=== PATIENT | male | born 1965 | race Caucasian/White ===

== ENCOUNTER 2016-03-30 23:10 | Emergency (ER) | payer MEDICARE ==
[~2016-03-30] VITALS: Ht 182.9 cm; Wt 78.2 kg
[~2016-03-30 23:10] MED LIST: AMOX500T2 PO; DOXY100T PO; FENT50DI TD; FENT75DI TD; LACT PO; OXYC1SOL5 PO; PERC10TA27 PO; SULF-154 PO
[2016-03-30 23:16] VITALS: BP 130/99; PULSE 138; RESP 18; TEMP 98.7; O2SAT 99
[2016-03-31] MEDS ORDERED: KETOROLAC TROMETHAMINE 30 MG/ML (IVP) VIAL IV PUSH ONE (00:30)
[2016-03-31 00:55] LABS: AUTOMATED NEUTROPHIL # 5.4 TH/MM3 (1.8-7.7); BASOPHIL % 0.6 % (0.0-2.0); EOSINOPHIL # 0.1 TH/MM3 (0-0.4); HEMATOCRIT 52.8 % (39.0-51.0); HEMO FLAGS DIFF FINAL; LYMPH % 21.1 % (9.0-44.0); LYMPHOCYTE # 1.6 TH/MM3 (1.0-4.8); MEAN CELL VOLUME 95.3 FL (80.0-100.0); MEAN CORPUSCULAR HEMOGLOBIN 30.9 PG (27.0-34.0); MEAN CORPUSCULAR HGB CONC 32.5 % (32.0-36.0); MONO % 8.7 % (0.0-8.0); NEUT % 68.6 % (16.0-70.0); PLATELET COUNT 282 TH/MM3 (150-450); RED BLOOD COUNT 5.54 MIL/MM3 (4.50-5.90); RED CELL DISTRIBUTION WIDTH 13.5 % (11.6-17.2); WHITE BLOOD COUNT 7.8 TH/MM3 (4.0-11.0)
--- NOTE | 2016-03-31 00:55 | RADHPO ---
EXAM DATE/TIME: 03/31/2016 00:34 [place] COMPARISON: CT ABDOMEN & PELVIS W CONTRAST, July 25, 2014, 2:23. INDICATIONS : Non-traumatic right hip pain MEDICAL HISTORY : Bilateral Avacular necrosis SURGICAL HISTORY : Bilateral hip arthroplasty ENCOUNTER: Initial ACUITY: 4 - 6 days PAIN SCORE: 8/10 LOCATION: Right hip FINDINGS: Bilateral total hip arthroplasties are noted. On the right, there is malleable plate apparatus on the acetabulum and there are multiple cerclage wires encircling the femoral stem component. The hardware is intact throughout. Alignment is anatomic. No acute bony findings are seen. There is no evidence o f displaced pelvic fracture. Lumbar spinal hardware fusion is also noted. CONCLUSION: No acute bony findings Edilson Ramos MD on March 31, 2016 at 0:51 Board Certified Radiologist. This report was verified electronically.
[2016-03-31 01:01] LABS: POTASSIUM 3.4 MEQ/L (3.5-5.1)
[2016-03-31 01:04] LABS: BICARBONATE 22.1 MEQ/L (21.0-32.0)
--- NOTE | 2016-03-31 01:12 | PD ---
HPI Chief Complaint: Pain: Acute or Chronic Time Seen by Provider: 01:12 Travel History International Travel<30 days: No Contact w/Intl Traveler<30days: No Traveled to known affect area: No History of Present Illness HPI 50-year-old male presents to the emergency department by private transportation for complaint of reported severe right hip pain. Patient has had surgery to the right hip twice before as well as left hip surgery once before and low back surgery in the past. Patient is on Medicare of a pain management physician and orthopedist Dr. Castano. Patient had surgery on his hips performed in [place] and [place]. Patient was told by his local orthopedist Dr. Castano there is no surgical options that he could offer the patient. Patient was encouraged by his orthopedist here locally to follow-up with pain management. Patient states that he has been followed by pain management who has prescribed him Percocet and fentanyl patches but due to the cost of these medications he has not been able to refill them even though he is caring the prescriptions from his provider with him. Patient states he took his last Percocet on Thursday and his fentanyl patch reportedly fell off on . The patient rates his pain 10 over 10 in intensity. Patient has not had any fever or chills and has not noticed any redness or swelling or induration or increased warmth in the right hip location. Patient uses a cane to assist with ambulation which is his typical mode of assisted ambulation. Patient denies any distal lower leg pain or swelling. PFSH Past Medical History Narrative Medical Arthritis asthma cardiac catheterization dyslipidemia hypertension diabetes tobaccoism bilateral hip surgery lumbar surgery cervical spine surgery nursing notes reviewed Arthritis: Yes Asthma: Yes Anxiety: Yes Depression: Yes Heart Rhythm Problems: No Cancer: No Cardiac Catheterization: Yes (2011) Cardiovascular Problems: Yes (Cardiac Cath) High Cholesterol: Yes Chest Pain: No Congestive Heart Failure: No Cerebrovascular Accident: No Diabetes: Yes (DIET CONTROLLED) Patient Takes Glucophage: No Diminished Hearing: No Endocrine: Yes Gastrointestinal Disorders: No Genitourinary: No Headaches: No Hepatitis: No Hiatal Hernia: Yes (REPAIR 2011) Herniated Disk: Yes Hypertension: Yes Immune Disorder: No Implanted Vascular Access Dvce: Yes Kidney Stones: No Musculoskeletal: Yes (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) Neurologic: No Psychiatric: Yes (Depression , Anxiety) Reproductive: No Respiratory: No Immunizations Current: Yes Migraines: No Renal Failure: No Seizures: No Thyroid Disease: No Tetanus Vaccination: < 5 Years Influenza Vaccination: Yes Past Surgical History Body Medical Devices: BILAT HIPS, MARISA IN LOW BACK, MARISA/FUSION IN NECK Cardiac Surgery: Yes (CARDIAC CATH 2009) Joint Replacement: Yes (BILATERAL HIPS) Neurologic Surgery: Yes (L5-S1 FUSION 2004, 2 LEVEL CERVICAL FUSION) Oral Surgery: Yes (TONSILLECTOMY) Pacemaker: No Tonsillectomy: Yes Other Surgery: Yes (FUSION CERVICAL 2006,2013) Social History Alcohol Use: Yes (VERY RARE) Tobacco Use: Yes (03/17 PPD) Substance Use: No (DENIES) Allergies-Medications (Allergen,Severity, Reaction): Coded Allergies: Morphine (Verified Allergy, Intermediate, Itching, 03/30/16) Reported Meds & Prescriptions Reported Meds & Active Scripts Active Lactinex (Lactobacillus Acidophilus) 1 Tab Tab 1 Tab PO TID 30 Days Augmentin 500MG/125MG (Amoxicillin/Clavulanate Potassium) 500 Mg Tab 500 Mg PO TID 14 Days Oxycodone/Acetaminophen 7.5 mg/325 mg 7.5 mg/325 mg Tab 2 Tab PO Q4H PRN Oxycodone/Acetaminophen 10 mg/325 mg 10 mg/325 mg Tab 1 Tab PO Q4H PRN Duragesic 50 Mcg/Hr (Fentanyl) 50 Mcg/Hr Patch 1 Patch TD Q3D Septra Ds (Trimethoprim/Sulfamethoxazole) Tab 1 Tab PO BID Vibramycin 100 mg (Doxycycline Hyclate) 100 Mg Cap 100 Mg PO BID Reported Fentanyl 75 Mcg/Hr patch (Fentanyl) 75 Mcg/Hr Dis 75 Mcg TD DIRECTED Percocet 10-325 mg (Oxycodone-Acetaminophen 10-325 mg) Oxycodone 10/325 Acetaminophen Tab 1 Tab PO Q4H Review of Systems Except as stated in HPI: all other systems reviewed are Neg Physical Exam Narrative GENERAL: Well-developed well-nourished male in no acute distress no respiratory distress is noted to be tachycardic by triage vital signs SKIN: Warm and dry. HEAD: Normocephalic. EYES: No scleral icterus. No injection or drainage. NECK: Supple, trachea midline. No JVD or lymphadenopathy. CARDIOVASCULAR: Increased Regular rate and rhythm without murmurs, gallops, or rubs. RESPIRATORY: Breath sounds equal bilaterally. No accessory muscle use. GASTROINTESTINAL: Abdomen soft, non-tender, nondistended. MUSCULOSKELETAL: No cyanosis, or edema. Attention right hip well healed surgical scar without redness induration tenderness or increased warmth. Patient is able to perform hip flexion to at least 45 or greater with out evidence of marked pain with range of motion of hip on flexion and extension distally there is no deformity no ballotable knee effusion lower leg pain or tenderness redness increased warmth ankle deformity or pallor dorsalis pedis pulses 2+ to palpation of the right foot with brisk capillary refill less than 2 seconds. BACK: Nontender without obvious deformity. No CVA tenderness. Data Data Last Documented VS Vital Signs Date Time Temp Pulse Resp B/P Pulse Ox O2 Delivery O2 Flow Rate FiO2 03/30/16 23:31 18 03/30/16 23:16 98.7 138 130/99 99 Orders ^ Saline Lock (03/31/16 00:21) Complete Blood Count With Diff (03/31/16 00:21) Basic Metabolic Panel (Bmp) (03/31/16 00:21) Hip, Uni(Ap&Lat) Wo Ap Pelvis (03/31/16 ) Ketorolac Inj (Toradol Inj) (03/31/16 00:30) Hydromorphone Pf Inj (Dilaudid Pf Inj) (03/31/16 01:15) Ondansetron Inj (Zofran Inj) (03/31/16 01:15) Labs Laboratory Tests Test 03/31/16 00:50 White Blood Count 7.8 TH/MM3 Red Blood Count 5.54 MIL/MM3 Hemoglobin 17.1 GM/DL Hematocrit 52.8 % Mean Corpuscular Volume 95.3 FL Mean Corpuscular Hemoglobin 30.9 PG Mean Corpuscular Hemoglobin 32.5 % Concent Red Cell Distribution Width 13.5 % Platelet Count 282 TH/MM3 Mean Platelet Volume 8.1 FL Neutrophils (%) (Auto) 68.6 % Lymphocytes (%) (Auto) 21.1 % Monocytes (%) (Auto) 8.7 % Eosinophils (%) (Auto) 1.0 % Basophils (%) (Auto) 0.6 % Neutrophils # (Auto) 5.4 TH/MM3 Lymphocytes # (Auto) 1.6 TH/MM3 Monocytes # (Auto) 0.7 TH/MM3 Eosinophils # (Auto) 0.1 TH/MM3 Basophils # (Auto) 0.0 TH/MM3 CBC Comment DIFF FINAL Differential Comment Sodium Level 138 MEQ/L Potassium Level 3.4 MEQ/L Chloride Level 104 MEQ/L Carbon Dioxide Level 22.1 MEQ/L Anion Gap 12 MEQ/L Blood Urea Nitrogen 10 MG/DL Creatinine 0.73 MG/DL Estimat Glomerular Filtration 113 ML/MIN Rate Random Glucose 176 MG/DL Calcium Level 9.4 MG/DL [facility] Medical Decision Making Medical Screen Exam Complete: Yes Emergency Medical Condition: Yes Medical Record Reviewed: Yes Differential Diagnosis Hip pain, chronic pain syndrome, opiate withdrawal, abscess, septic arthritis, uncontrolled diabetes Narrative Course IV access obtained patient administered Toradol 30 mg IV; CBC with automated differential values grossly within normal range except for elevated hemoglobin of 17.1; basic metabolic panel values within normal range except for mild hyperglycemia glucose 176 and potassium mild hypokalemia 3.4 At 1:10 AM x-ray of the right hip reveals no acute bony abnormality; patient requesting stronger pain medication as Toradol Zofran providing adequate relief. One x dose of Dilaudid administered Diagnosis Primary Impression: Chronic right hip pain Referrals: Pain Management 1 day Patient Instructions: Narcotic given in the ED, General Instructions Additional Instructions: Follow-up with your pain management physician Follow-up with your orthopedist Return to the emergency department for any concerns or change in condition Take ibuprofen/Advil/Motrin may take 600-800 mg as often as every 8 hours for pain associated with inflammation; avoid high-dose ibuprofen for greater than 2- 3 days Add potassium containing foods and beverages to dietary intake Med/Other Pt SpecificInfo: No Change to Meds Disposition: 01 DISCHARGE HOME Condition: Stable Louise Mckinney MD Mar 31, 2016 01:12
[2016-03-31] MEDS ORDERED: HYDROmorphone HCL PF 1 MG/ML VIAL IV PUSH ONE (01:15)
[2016-03-31] MEDS ORDERED: ONDANSETRON HCL 4 MG/2 ML VIAL IV PUSH ONE (01:15)
[2016-03-31 01:30] VITALS: BP 119/84; PULSE 113; RESP 16; O2SAT 96
== END 2016-03-31 02:32 | disposition home or self-care (01) ==
LOC: PHED 23:10
DX: M25.551 Pain in right hip (principal); G89.29 Other chronic pain; I10 Essential (primary) hypertension; E11.9 Type 2 diabetes mellitus without complications; E78.5 Hyperlipidemia, unspecified; E78.00 Pure hypercholesterolemia, unspecified; F17.200 Nicotine dependence, unspecified, uncomplicated; Z98.890 Other specified postprocedural states; Z87.39 Personal history of other diseases of the musculoskeletal system and connective tissue; Z87.09 Personal history of other diseases of the respiratory system; Z86.59 Personal history of other mental and behavioral disorders; Z86.79 Personal history of other diseases of the circulatory system
CPT/HCPCS: 73502; 80048; 85025; 96374; 96375; 99283; J1170; J1885; J2405

== ENCOUNTER 2016-10-14 19:59 | Inpatient (IN) | payer MEDICARE ==
[~2016-10-14] VITALS: Ht 182.9 cm; Wt 85.5 kg
[2016-10-14 20:01] VITALS: BP 139/81; PULSE 124; RESP 16; TEMP 98.9; O2SAT 98
[2016-10-14] MEDS ORDERED: ONDANSETRON HCL 4 MG/2 ML VIAL IV PUSH ONE (22:30)
[2016-10-14] MEDS ORDERED: HYDROmorphone HCL PF 1 MG/ML VIAL IV PUSH ONE (22:30)
--- NOTE | 2016-10-14 22:47 | PD ---
HPI Chief Complaint: Hip Injury Time Seen by Provider: 22:40 Travel History International Travel<30 days: No Contact w/Intl Traveler<30days: No Traveled to known affect area: No History of Present Illness HPI 51-year-old male presents emergency department requesting psychological evaluation for suicidal ideation. The patient states that he is tired of being in pain. The patient states that he is under pain management due to chronic hip, neck and back pain. He takes 75 g of fentanyl daily along with 4 Percocet 10 mg. He states that the pain has been getting worse more so in his right hip. He has doubled up on his Percocet and now has run out over the past week. He was told by Dr. Castano his orthopedist that he could not have a revision of his right hip because it was too risky. He has a loss of bone in a loose hip prosthesis and he is advised to follow-up with the [facility] for possible revision. The patient has not been able sleep. He is accompanied by his who states that she is concerned that he may hurt himself. He is here voluntarily and asking for help. He had been under the care of Dr. Sesay in the past. He was seen approximately 2 years ago and was on an antidepressant. He has been off his medications for some time now. He denies any active plan on self-harm but is concerned that he may hurt himself. He states that if he was going to hurt himself he may hang himself. He denies any toxic ingestions. He denies any recent illness or injury. Symptoms are severe. No alleviating factors. PFSH Past Medical History Arthritis: Yes Asthma: Yes Anxiety: Yes Depression: Yes Heart Rhythm Problems: No Cancer: No Cardiac Catheterization: Yes (2011) Cardiovascular Problems: Yes (Cardiac Cath) High Cholesterol: Yes Chest Pain: No Congestive Heart Failure: No Cerebrovascular Accident: No Diabetes: Yes Patient Takes Glucophage: No Diminished Hearing: No Endocrine: Yes Gastrointestinal Disorders: No Genitourinary: No Headaches: No Hepatitis: No Hiatal Hernia: Yes (REPAIR 2011) Herniated Disk: Yes Hypertension: Yes Immune Disorder: No Implanted Vascular Access Dvce: Yes Kidney Stones: No Musculoskeletal: Yes (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) Neurologic: No Psychiatric: Yes (Depression , Anxiety) Reproductive: No Respiratory: No Immunizations Current: Yes Migraines: No Renal Failure: No Seizures: No Thyroid Disease: No Tetanus Vaccination: < 5 Years Influenza Vaccination: Yes Past Surgical History Body Medical Devices: BILAT HIPS, MARISA IN LOW BACK, MARISA/FUSION IN NECK Cardiac Surgery: Yes (CARDIAC CATH 2009) Joint Replacement: Yes (BILATERAL HIPS) Neurologic Surgery: Yes (L5-S1 FUSION 2004, 2 LEVEL CERVICAL FUSION) Oral Surgery: Yes (TONSILLECTOMY) Pacemaker: No Tonsillectomy: Yes Other Surgery: Yes (FUSION CERVICAL 2006,2013) Social History Alcohol Use: Yes (VERY RARE) Tobacco Use: Yes (03/17 PPD) Substance Use: No Allergies-Medications (Allergen,Severity, Reaction): Coded Allergies: Morphine (Verified Allergy, Intermediate, Itching, 03/30/16) Reported Meds & Prescriptions Reported Meds & Active Scripts Active Lactinex (Lactobacillus Acidophilus) 1 Tab Tab 1 Tab PO TID 30 Days Augmentin 500MG/125MG (Amoxicillin/Clavulanate Potassium) 500 Mg Tab 500 Mg PO TID 14 Days Oxycodone/Acetaminophen 7.5 mg/325 mg 7.5 mg/325 mg Tab 2 Tab PO Q4H PRN Oxycodone/Acetaminophen 10 mg/325 mg 10 mg/325 mg Tab 1 Tab PO Q4H PRN Duragesic 50 Mcg/Hr (Fentanyl) 50 Mcg/Hr Patch 1 Patch TD Q3D Septra Ds (Trimethoprim/Sulfamethoxazole) Tab 1 Tab PO BID Vibramycin 100 mg (Doxycycline Hyclate) 100 Mg Cap 100 Mg PO BID Reported Fentanyl 75 Mcg/Hr patch (Fentanyl) 75 Mcg/Hr Dis 75 Mcg TD DIRECTED Percocet 10-325 mg (Oxycodone-Acetaminophen 10-325 mg) Oxycodone 10/325 Acetaminophen Tab 1 Tab PO Q4H Review of Systems Except as stated in HPI: all other systems reviewed are Neg General / Constitutional: No: Fever, Chills Eyes: No: Blurred Vision, Photophobia HENT: Positive: Neck Pain, No: Sore Throat Cardiovascular: No: Chest Pain or Discomfort, Palpitations Respiratory: No: Cough, Shortness of Breath Gastrointestinal: No: Nausea, Vomiting Genitourinary: No: Frequency, Dysuria Musculoskeletal: Positive: Arthralgias, Limited ROM, Pain, No: Edema Skin: No Rash, No Itching Neurologic: No: Headache, Paresthesia Psychiatric: Positive: Depression, Suicidal Ideations, Mood Disorder, No: Anxiety, Disorder of Thought, Substance Abuse, Homicidal Ideation Physical Exam Narrative GENERAL: Well-nourished, well-developed patient. SKIN: Warm and dry. HEAD: Normocephalic and atraumatic. EYES: No scleral icterus. No injection or drainage. ENT: No nasal drainage noted. Mucous membranes pink. Airway patent. NECK: Supple, trachea midline. Moves head freely without obvious discomfort. CARDIOVASCULAR: Regular rate and rhythm without murmurs, gallops, or rubs. RESPIRATORY: Breath sounds equal bilaterally. No accessory muscle use. GASTROINTESTINAL: Abdomen soft, non-tender, nondistended. EXTREMITIES: No cyanosis or edema. Patient complains of pain in both hips more so on the right than left. There is no lower extremity edema. He has intact gross sensation. BACK: Patient has no acute reproducible tenderness of the dorsal lumbar spine. Without obvious deformity. No CVA tenderness. NEURO: Patient is alert and oriented. no sensorimotor deficits. Nonfocal. Normal speech. PSYCH: No delusions. No auditory or visual hallucinations. Data Data Last Documented VS Vital Signs Date Time Temp Pulse Resp B/P Pulse Ox O2 Delivery O2 Flow Rate FiO2 10/14/16 20:01 98.9 124 16 139/81 98 Room Air Orders Complete Blood Count With Diff (10/14/16 22:26) Comprehensive Metabolic Panel (10/14/16 22:26) Psych Screen (10/14/16 22:26) Drug Screen, Random Urine (10/14/16 22:26) Alcohol (Ethanol) (10/14/16 22:26) Salicylates (Aspirin) (10/14/16 22:26) Tylenol (Acetaminophen) (10/14/16 22:26) Hydromorphone Pf Inj (Dilaudid Pf Inj) (10/14/16 22:30) Ondansetron Inj (Zofran Inj) (10/14/16 22:30) Iv Access Insert/Monitor (10/14/16 22:26) Labs Laboratory Tests Test 10/14/16 22:45 White Blood Count 8.3 TH/MM3 Red Blood Count 4.03 MIL/MM3 Hemoglobin 13.7 GM/DL Hematocrit 39.8 % Mean Corpuscular Volume 98.8 FL Mean Corpuscular Hemoglobin 34.0 PG Mean Corpuscular Hemoglobin 34.4 % Concent Red Cell Distribution Width 13.1 % Platelet Count 354 TH/MM3 Mean Platelet Volume 7.3 FL Neutrophils (%) (Auto) 59.4 % Lymphocytes (%) (Auto) 32.0 % Monocytes (%) (Auto) 6.3 % Eosinophils (%) (Auto) 1.5 % Basophils (%) (Auto) 0.8 % Neutrophils # (Auto) 4.9 TH/MM3 Lymphocytes # (Auto) 2.6 TH/MM3 Monocytes # (Auto) 0.5 TH/MM3 Eosinophils # (Auto) 0.1 TH/MM3 Basophils # (Auto) 0.1 TH/MM3 CBC Comment DIFF FINAL Differential Comment Sodium Level 142 MEQ/L Potassium Level 3.8 MEQ/L Chloride Level 106 MEQ/L Carbon Dioxide Level 25.2 MEQ/L Anion Gap 11 MEQ/L Blood Urea Nitrogen 9 MG/DL Creatinine 0.66 MG/DL Estimat Glomerular Filtration 127 ML/MIN Rate Random Glucose 89 MG/DL Calcium Level 9.3 MG/DL Total Bilirubin 0.3 MG/DL Aspartate Amino Transf 18 U/L (AST/SGOT) Alanine Aminotransferase 17 U/L (ALT/SGPT) Alkaline Phosphatase 136 U/L Total Protein 8.2 GM/DL Albumin 3.8 GM/DL Salicylates Level 3.6 MG/DL Acetaminophen Level LESS THAN 2.0 MCG/ML Ethyl Alcohol Level LESS THAN 3 MG/DL MDM Medical Decision Making Medical Screen Exam Complete: Yes Emergency Medical Condition: Yes Medical Record Reviewed: Yes Interpretation(s) Laboratory Tests Test 10/14/16 22:45 White Blood Count 8.3 TH/MM3 Red Blood Count 4.03 MIL/MM3 Hemoglobin 13.7 GM/DL Hematocrit 39.8 % Mean Corpuscular Volume 98.8 FL Mean Corpuscular Hemoglobin 34.0 PG Mean Corpuscular Hemoglobin 34.4 % Concent Red Cell Distribution Width 13.1 % Platelet Count 354 TH/MM3 Mean Platelet Volume 7.3 FL Neutrophils (%) (Auto) 59.4 % Lymphocytes (%) (Auto) 32.0 % Monocytes (%) (Auto) 6.3 % Eosinophils (%) (Auto) 1.5 % Basophils (%) (Auto) 0.8 % Neutrophils # (Auto) 4.9 TH/MM3 Lymphocytes # (Auto) 2.6 TH/MM3 Monocytes # (Auto) 0.5 TH/MM3 Eosinophils # (Auto) 0.1 TH/MM3 Basophils # (Auto) 0.1 TH/MM3 CBC Comment DIFF FINAL Differential Comment Sodium Level 142 MEQ/L Potassium Level 3.8 MEQ/L Chloride Level 106 MEQ/L Carbon Dioxide Level 25.2 MEQ/L Anion Gap 11 MEQ/L Blood Urea Nitrogen 9 MG/DL Creatinine 0.66 MG/DL Estimat Glomerular Filtration 127 ML/MIN Rate Random Glucose 89 MG/DL Calcium Level 9.3 MG/DL Total Bilirubin 0.3 MG/DL Aspartate Amino Transf 18 U/L (AST/SGOT) Alanine Aminotransferase 17 U/L (ALT/SGPT) Alkaline Phosphatase 136 U/L Total Protein 8.2 GM/DL Albumin 3.8 GM/DL Salicylates Level 3.6 MG/DL Acetaminophen Level LESS THAN 2.0 MCG/ML Ethyl Alcohol Level LESS THAN 3 MG/DL Differential Diagnosis MDM: High Differential diagnoses: Schizophrenia, schizoaffective disorder, bipolar, anxiety, depression, adjustment reaction, mood disorder NOS, ODD, depressive disorder NOS, dementia, dementia with agitation, psychosis NOS, substance induced mood disorder, intermittent explosive disorder, Asperger syndrome, infection,electrolyte abnormality, malingering. Narrative Course Mental health screening discussed with the patient. Psychiatric screen ordered. IV access is obtained. Patient's given 1 mg of Dilaudid and 4 mg of Zofran IV. Routine laboratory tests sent for analysis. I've spoken with the psych department and have pain anywhere of this patient at 2240 This is medical clearance for psychiatric admission, chronic pain Diagnosis Primary Impression: Medical clearance for psychiatric admission Additional Impression: Chronic pain Qualified Code: G89.4 - Chronic pain syndrome Condition: Stable Jake Navarro Oct 14, 2016 22:47
[2016-10-14 23:00] VITALS: BP 142/74; PULSE 89; RESP 16; O2SAT 98
[2016-10-14 23:24] LABS: AUTOMATED NEUTROPHIL # 4.9 TH/MM3 (1.8-7.7); BASOPHIL # 0.1 TH/MM3 (0-0.2); BASOPHIL % 0.8 % (0.0-2.0); EOSINOPHIL # 0.1 TH/MM3 (0-0.4); EOSINOPHIL % 1.5 % (0.0-4.0); HEMATOCRIT 39.8 % (39.0-51.0); HEMO FLAGS DIFF FINAL; LYMPHOCYTE # 2.6 TH/MM3 (1.0-4.8); MEAN CELL VOLUME 98.8 FL (80.0-100.0); MEAN CORPUSCULAR HGB CONC 34.4 % (32.0-36.0); MONO % 6.3 % (0.0-8.0); NEUT % 59.4 % (16.0-70.0); PLATELET COUNT 354 TH/MM3 (150-450); RED BLOOD COUNT 4.03 MIL/MM3 (4.50-5.90); RED CELL DISTRIBUTION WIDTH 13.1 % (11.6-17.2); WHITE BLOOD COUNT 8.3 TH/MM3 (4.0-11.0)
[2016-10-14 23:48] LABS: ANION GAP 11 MEQ/L (5-15); AST (GOT) 18 U/L (15-37); BICARBONATE 25.2 MEQ/L (21.0-32.0); BLOOD UREA NITROGEN 9 MG/DL (7-18); CHLORIDE 106 MEQ/L (98-107); GLOMERULAR FILTRATION RATE 127 ML/MIN (>89); POTASSIUM 3.8 MEQ/L (3.5-5.1); SODIUM (NA) 142 MEQ/L (136-145)
[2016-10-14 23:50] LABS: ACETAMINOPHEN LESS THAN 2.0 MCG/ML (10.0-30.0); ALKALINE PHOSPHATASE 136 U/L (45-117); ALT (GPT) 17 U/L (12-78); TOTAL BILIRUBIN ADULT 0.3 MG/DL (0.2-1.0)
[2016-10-15 03:00] VITALS: BP 133/78; PULSE 85; RESP 16; O2SAT 98
[2016-10-15 07:50] VITALS: BP 132/78; PULSE 77; RESP 18; O2SAT 95
[2016-10-15] MEDS ORDERED: KETOROLAC TROMETHAMINE 30 MG/ML (IVP) VIAL IV PUSH ONE (09:15)
[2016-10-15] MEDS ORDERED: LORazepam 2 MG/ML VIAL IM PRN ×2 (09:45→11:00)
[2016-10-15] MEDS ORDERED: LORazepam 0.5 MG TAB PO PRN (09:45)
[2016-10-15] MEDS ORDERED: fentaNYL 50 MCG/HR PATCH TOPICAL SCH (09:45)
--- NOTE | 2016-10-15 09:52 | HHI.HP ---
Provisional Diagnosis Admission Date Oct 15, 2016 at 09:37 [place] I. Major depression, recurrent, severe, without psychotic features. Certification of Person's Competence To Provide Express and Informed Consent I have personally examined Charly Hawk , a person being served at [facility] on, Oct 15, 2016 09:42. Express and informed consent means consent voluntarily given in writing, by a competent person, after sufficient explanation and disclosure of the subject matter involved to enable the person to make a knowing and willful decision without any element of force, fraud, deceit, duress, or other form of constraint or coercion. This person is 18 years of age or older, is not now known to be incompetent to consent to treatment with a guardian advocate, and does not have a health care surrogate or proxy currently making medical treatment decisions. I have found this person to be one of the following: [x] Competent to provide express and informed consent, as defined above, for voluntary admission to this facility and is competent to provide express and informed consent for treatment. He/she has the consistent capacity to make well reasoned, willful, and knowing decisions concerning his or her medical or mental health treatment. The person fully and consistently understands the purpose of the admission for examination/placement and is fully capable of personally exercising all rights [place] Incompetent to provide express and informed consent to voluntary admission, and this is incompetent to provide express and informed consent to treatment. The person must be transferred to involuntary status and a petition for a guardian advocate filed with the Circuit Court. [] Refusing to provide express and informed consent to voluntary admission but is competent to provide express and informed consent for treatment. The person must be discharged or transferred to involuntary status. Form shall be completed within 24 hours of a person's arrival at the receiving facility and filed in the clinical record of each person: 1. Admitted on a voluntary basis 2. Permitted to provide express and informed consent to his/her own treatment 3. Allowed to transfer from involuntary to voluntary status 4. Prior to permitting a person to consent to his or her own treatment after having been previously found incompetent to consent to treatment. History of Present Illness Capacity: Has Capacity HPI This is a 51-year-old gentleman, presenting voluntarily to the emergency department due to depression and suicidal ideation. The patient has been in chronic pain for years and is under pain management for hip, neck and back pain. He uses a fentanyl patch on a daily basis and approximately for 10 mg Percocet pills. Recently the pain has been getting worse, primarily in his right hip. He has been unable to have a orthopedic intervention, reportedly because of the risk involved. Patient describes multiple symptoms of depression, including depressed mood, anxiety, initial and middle insomnia, suicidal thinking, social withdrawal, diminished energy, anhedonia, etc. He has feelings of hopelessness and helplessness regarding his physical condition and his chronic pain. He has been taking antidepressants in the past but is not reportedly on antidepressant medicine now. He does have a plan to hurt himself by hanging. He denies any use of alcohol. Review of Systems Except as stated in HPI: all other systems reviewed are Neg Musculoskeletal: COMPLAINS OF: Joint pain, Back pain, Neck pain Past Psych History Psychological trauma history Unknown psychological trauma. The patient has been admitted to Dr. Sesay in the past, approximately 2 years ago. Violence risk - others (6 mos) Minimal Violence risk - self (6 mos) High Substance Abuse History Drugs/Alcohol past 12 months Denied for alcohol or illicit drug use. Past Family Social History Coded Allergies: Morphine (Verified Allergy, Intermediate, Itching, 03/30/16) Active Scripts Lactobacillus Acidophilus (Lactinex)1 Tab Tab1 Tab PO TID 30 Days Prov:Rome Whiting MD 10/22/15 Amoxicillin & Pot Clavulanate (Augmentin 500MG/125MG)500 Mg [id number] Mg PO TID 14 Days Prov:Rome Whiting MD 10/22/15 Oxycodone W/ Acetaminophen (Oxycodone/Acetaminophen 5-325 mg/5Ml)7.5 mg/325 mg Tab2 Tab PO Q4H PRN (pain 7-10) #15 TAB Prov:Rome Whiting MD 10/21/15 Oxycodone W/ Acetaminophen (Oxycodone/Acetaminophen 5-325 mg/5Ml)10 mg/325 mg Tab1 Tab PO Q4H PRN (pain 3-5) #15 TAB Prov:Rome Whiting MD 10/21/15 Fentanyl 50 Mcg/Hr patch 50 Mcg/Hr Patch1 Patch TD Q3D #2 PATCH Prov:Rome Whiting MD 10/21/15 Sulfamethoxazole-Trimethoprim (Septra Ds) Tab1 Tab PO BID #20 TAB Prov:Cezar Charles MD 10/11/15 Doxycycline Hyclate 100 mg 100 Mg [id number] Mg PO BID #20 CAP Prov:Cezar Charles MD 10/11/15 Reported Medications Fentanyl 75 Mcg/Hr patch 75 Mcg/Hr Dis75 Mcg TD DIRECTED #1 DIS 04/25/14 Oxycodone-Acetaminophen 10-325 mg (Percocet 10-325 mg)Oxycodone 10/325 Acetaminophen Tab1 Tab PO Q4H 04/25/14 Family History Positive for mood disorders. Social History Lives with his , who is at his bedside. This physician spoke to the patient 's . She is very concerned about his safety. Patient is unemployed and disabled. Patient's Strengths (min. 2) Verbal and has access to healthcare. Physical Exam GENERAL: SKIN: Warm and dry. HEAD: Normocephalic. EYES: No scleral icterus. No injection or drainage. NECK: Supple, trachea midline. No JVD or lymphadenopathy. CARDIOVASCULAR: Regular rate and rhythm without murmurs, gallops, or rubs. RESPIRATORY: Breath sounds equal bilaterally. No accessory muscle use. GASTROINTESTINAL: Abdomen soft, non-tender, nondistended. MUSCULOSKELETAL: No cyanosis, or edema. BACK: Nontender without obvious deformity. No CVA tenderness. Vital Signs Vital Signs Date Time Temp Pulse Resp B/P Pulse Ox O2 Delivery O2 Flow Rate FiO2 10/15/16 07:50 77 18 132/78 95 10/15/16 03:00 Room Air 10/14/16 20:01 98.9 Mental Status Examination Speech: Unremarkable Orientation: x3 Memory: Unremarkable Thought Process: Organized, Goal Directed Thought Content: Unremarkable Hallucination Type: None Attention and Concentration: Good Suicidal Ideation: Yes Previous Suicide Attempts: No Homicidal Ideation: No Previous Homicide Attempts: No Insight: Fair Judgment: WNL Affect: Anxious, Sad Mood: Sad, Anxious Motor Activity: Normal gait Assessment & Plan Problem List: (1) Recurrent major depression-severe ICD Code: F33.2 Assessment & Plan Estimated LOS: days this is a 51-year-old male with a history of chronic depression and chronic pain. He is in significant pain at this time and his depression has become dangerously out of control. He has feelings of hopelessness and helplessness with thoughts of hanging himself due to the chronic pain and the inability to help himself through medical treatment. He is feeling desperate. This physician feels it is imperative he be admitted Patient's workup will include a CBC and comprehensive metabolic panel to ensure no infectious process or metabolic process is causing or aggravating his pain. This physician started him back on antibiotics. Additionally, the patient's thyroid stimulating hormone will be checked to ensure there is not a thyroid issue contributing to his depression. Likewise, vitamins D and B-12 will be checked to ensure a vitamin deficiency is not contributing to his depression. Physical therapy consult, physical medicine hospitalist consult were both ordered to assess treatment options and evaluate his current pain medications. This physician spoke with the patient's nurse regarding his recent behavior and spoke with the patient's regarding his history. Call Out Operator will also be asked to assist the patient, possibly with referrals to the [facility] or other type of rehabilitation services. Finally, the patient will also receive an EKG because he is on multiple medications and at his age, cardiac conduction may be a problem. Problem Qualifiers (1) Recurrent major depression-severe: Qualified Code: F33.2 - Severe episode of recurrent major depressive disorder, without psychotic features Peter Gunderson MD Oct 15, 2016 09:52
[2016-10-15 10:49] LABS: AMPHETAMINE, URINE NEG (NEG); BARBITURATES, URINE NEG (NEG); COCAINE, URINE NEG (NEG)
[2016-10-15] MEDS ORDERED: MAGNESIUM HYDROXIDE SUSP 30 ML CUP PO PRN (11:00)
[2016-10-15] MEDS ORDERED: ALUMINUM/MAGNESIUM/SIMETH 30 ML CUP PO PRN (11:00)
[2016-10-15] MEDS ORDERED: ACETAMINOPHEN 325 MG TAB PO PRN (11:00)
[2016-10-15] MEDS: oxyCODONE/ACETAMINOPHEN 10 MG/325 MG TAB PO SCH ×4 (11:57→23:00)
[2016-10-15 12:25] VITALS: BP 134/78; PULSE 78; RESP 18; TEMP 98.7; O2SAT 95
[2016-10-15] MEDS: AMOXICILLIN/CLAVULANATE K 500 MG TAB PO SCH ×2 (13:00→18:00)
[2016-10-15] MEDS: LACTOBACILLUS ACIDOPHILUS TAB PO SCH ×2 (13:00→18:00)
--- NOTE | 2016-10-15 15:31 | PD.CONS ---
HPI Service [facility] Hospitalists Consult Requested By Psychiatric services Reason for Consult Medical management Primary Care Physician No Primary Care Physician Diagnoses: History of Present Illness Written by Marlen Olivas PA-C acting as scribe for Dr. Price on 10/15/16 at 15 :22. 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 Hospitalist services were consulted for medical management. Patient seen and examined today. Patient complains of chronic pain in his neck low back as well as both hips more so on the right than the left. He has no other acute medical complaints. He denies any chest pain or shortness of breath. Denies any fever or chills. Denies any nausea, vomiting or abdominal pain. Denies any diarrhea constipation or urinary complaints. Review of Systems Except as stated in HPI: all other systems reviewed are Neg Past Family Social History Allergies: Coded Allergies: Morphine (Verified Allergy, Intermediate, Itching, 03/30/16) Past Medical History Avascular necrosis due to steroid use Hypertension Dyslipidemia Degenerative disc disease of cervical and lumbar spine Diet-controlled diabetes Depression Past Surgical History Bilateral hip replacements Neck fusion L5 to S1 lumbar fusion Tonsillectomy Hiatal hernia repair I&D of right hand Reported Medications Lactinex (Lactobacillus Acidophilus) 1 Tab Tab 1 Tab PO TID 30 Days Augmentin 500MG/125MG (Amoxicillin/Clavulanate Potassium) 500 Mg Tab 500 Mg PO TID 14 Days Oxycodone/Acetaminophen 7.5 mg/325 mg 7.5 mg/325 mg Tab 2 Tab PO Q4H PRN Oxycodone/Acetaminophen 10 mg/325 mg 10 mg/325 mg Tab 1 Tab PO Q4H PRN Duragesic 50 Mcg/Hr (Fentanyl) 50 Mcg/Hr Patch 1 Patch TD Q3D Septra Ds (Trimethoprim/Sulfamethoxazole) Tab 1 Tab PO BID Vibramycin 100 mg (Doxycycline Hyclate) 100 Mg Cap 100 Mg PO BID Active Ordered Medications Current Medications Medications (Trade) Dose Ordered Sig/Tiffany Route Start Time Stop Time Status Last Admin (Ativan) 1 mg Q6H PRN PO 10/15/16 11:00 (Ativan Inj) 1 mg Q6H PRN IM 10/15/16 11:00 (Tylenol) 650 mg Q4H PRN PO 10/15/16 11:00 (Milk Of Magnesia Liq) 30 ml DAILY PRN PO 10/15/16 11:00 (Mag-Al Plus Susp Liq) 30 ml Q6H PRN PO 10/15/16 11:00 (Desyrel) 50 mg HS PRN PO 10/15/16 21:00 (Augmentin) 500 mg TID PO 10/15/16 13:00 (Vibratab) 100 mg BID PO 10/15/16 21:00 (Lactinex) 1 tab TID PO 10/15/16 13:00 (Percocet 10-325 Mg) 1 tab Q4H PO 10/15/16 11:00 10/15/16 11:57 (Bactrim Ds 800-160 Mg) 1 tab BID PO 10/15/16 21:00 (Duragesic 75 Mcg Patch.72 Hr) 1 patch Q3D T-DERMAL 10/15/16 12:00 Miscellaneous Information 1 Q3D T-DERMAL 10/18/16 12:00 Family History Father, , lung cancer Mother, alive, schizophrenia, CAD status post CABG 2 Social History Patient reports tobacco use of a half pack per day. He reports rare alcohol consumption. He denies any illicit drug use. Physical Exam Vital Signs Vital Signs Date Time Temp Pulse Resp B/P Pulse Ox O2 Delivery O2 Flow Rate FiO2 10/15/16 12:25 98.7 78 18 134/78 95 10/15/16 07:50 77 18 132/78 95 10/15/16 07:50 77 18 95 10/15/16 03:00 85 16 133/78 98 Room Air 10/14/16 23:00 89 16 142/74 98 Room Air 10/14/16 20:01 98.9 124 16 139/81 98 Room Air Physical Exam GENERAL: This is a well-nourished, well-developed patient, in no apparent distress. Awake and alert. is at his bedside. SKIN: No rashes, ecchymoses or lesions. Cool and dry. HEAD: Atraumatic. Normocephalic. No temporal or scalp tenderness. EYES: Pupils equal round and reactive. Extraocular motions intact. No scleral icterus. No injection or drainage. ENT: Nose without bleeding or purulent drainage. Throat without erythema, tonsillar hypertrophy or exudate. Uvula midline. Airway patent. NECK: Trachea midline. No lymphadenopathy. Supple, nontender, no meningeal signs. CARDIOVASCULAR: Regular rate and rhythm without murmurs, gallops, or rubs. RESPIRATORY: Clear to auscultation. Breath sounds equal bilaterally. No wheezes , rales, or rhonchi. GASTROINTESTINAL: Abdomen soft, non-tender, nondistended. No hepato-splenomegaly , or palpable masses. No guarding. MUSCULOSKELETAL: Extremities without clubbing, cyanosis, or edema. No calf tenderness. NEUROLOGICAL: Awake and alert. Able to move all extremities. Motor and sensory function intact bilateral lower extremities. Normal speech. Laboratory Laboratory Tests Test 10/14/16 10/15/16 22:45 09:45 White Blood Count 8.3 Red Blood Count 4.03 Hemoglobin 13.7 Hematocrit 39.8 Mean Corpuscular Volume 98.8 Mean Corpuscular Hemoglobin 34.0 Mean Corpuscular Hemoglobin 34.4 Concent Red Cell Distribution Width 13.1 Platelet Count 354 Mean Platelet Volume 7.3 Neutrophils (%) (Auto) 59.4 Lymphocytes (%) (Auto) 32.0 Monocytes (%) (Auto) 6.3 Eosinophils (%) (Auto) 1.5 Basophils (%) (Auto) 0.8 Neutrophils # (Auto) 4.9 Lymphocytes # (Auto) 2.6 Monocytes # (Auto) 0.5 Eosinophils # (Auto) 0.1 Basophils # (Auto) 0.1 CBC Comment DIFF FINAL Differential Comment Sodium Level 142 Potassium Level 3.8 Chloride Level 106 Carbon Dioxide Level 25.2 Anion Gap 11 Blood Urea Nitrogen 9 Creatinine 0.66 Estimat Glomerular Filtration 127 Rate Random Glucose 89 Calcium Level 9.3 Total Bilirubin 0.3 Aspartate Amino Transf 18 (AST/SGOT) Alanine Aminotransferase 17 (ALT/SGPT) Alkaline Phosphatase 136 Total Protein 8.2 Albumin 3.8 Salicylates Level 3.6 Acetaminophen Level LESS THAN 2.0 Ethyl Alcohol Level LESS THAN 3 Urine Opiates Screen NEG Urine Barbiturates Screen NEG Urine Amphetamines Screen NEG Urine Benzodiazepines Screen NEG Urine Cocaine Screen NEG Urine Cannabinoids Screen NEG Result Diagram: 10/14/16224410/14/162244 Assessment and Plan Assessment and Plan 51-year-old male with past medical history significant for 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 Depression with suicidal ideation - Management per psychiatric team Chronic neck low back and bilateral hip pain History of avascular necrosis s/p steroid use Status post bilateral hip replacements with loose right total hip prosthesis Status post neck and lumbar fusion surgeries - Continue patient on current pain medication regimen - Discussed possibility of spinal cord stimulator trial of outpatient - PT evaluation completed and recommendation for aquatic therapy as outpatient. Patient is agreeable. Will provide outpatient prescription for aquatic therapy at the time of this discharge. Hypertension - Currently controlled off of medications - Monitor Diet-controlled diabetes - Diabetic diet - Obtain hemoglobin A1c DVT prophylaxis - Patient is ambulatory Thank you for kindly for this consultation. Will continue to follow along with you. This note was transcribed by ELIZABETH Goss I, Dr. Sara Price personally performed the history, physical exam, and medical decision making; and confirmed the accuracy of the information in the transcribed note. Authenticated by Dr. Sara Price on 10/15/16 at 15:22. Discussed Condition With Patient and nursing staff Marlen Olivas Oct 15, 2016 15:31 Sara Price MD Oct 17, 2016 16:16
[2016-10-15] MEDS: fentaNYL 75 MCG/HR PATCH T-DERMAL SCH (16:00)
[2016-10-15] MEDS: LORazepam 1 MG TAB PO PRN (17:21)
[2016-10-15 18:02] VITALS: BP 116/71; PULSE 98; RESP 18; TEMP 98.8; O2SAT 96
[2016-10-15] MEDS: DOXYCYCLINE HYCLATE 100 MG TAB PO SCH (21:00)
[2016-10-15] MEDS: SULFAMETHOXAZOLE-TRIMETHOPRIM DS 800-160 MG TAB PO SCH (21:00)
[2016-10-15] MEDS: traZODone HCL 50 MG TAB PO PRN (21:07)
[2016-10-16] MEDS: oxyCODONE/ACETAMINOPHEN 10 MG/325 MG TAB PO SCH ×6 (03:00→22:02)
[2016-10-16 06:03] VITALS: BP 92/51; PULSE 67; RESP 18; TEMP 97.8; O2SAT 99
[2016-10-16] MEDS: LACTOBACILLUS ACIDOPHILUS TAB PO SCH ×3 (08:38→17:13)
[2016-10-16] MEDS: AMOXICILLIN/CLAVULANATE K 500 MG TAB PO SCH (08:39)
[2016-10-16] MEDS: SULFAMETHOXAZOLE-TRIMETHOPRIM DS 800-160 MG TAB PO SCH (08:39)
[2016-10-16] MEDS: DOXYCYCLINE HYCLATE 100 MG TAB PO SCH (08:40)
[2016-10-16 10:11] LABS: AUTOMATED NEUTROPHIL # 4.1 TH/MM3 (1.8-7.7); BASOPHIL # 0.1 TH/MM3 (0-0.2); BASOPHIL % 0.8 % (0.0-2.0); EOSINOPHIL # 0.1 TH/MM3 (0-0.4); EOSINOPHIL % 1.9 % (0.0-4.0); HEMATOCRIT 40.1 % (39.0-51.0); HEMO FLAGS DIFF FINAL; MEAN CELL VOLUME 98.6 FL (80.0-100.0); MEAN CORPUSCULAR HEMOGLOBIN 34.5 PG (27.0-34.0); MEAN CORPUSCULAR HGB CONC 34.9 % (32.0-36.0); MONO % 7.2 % (0.0-8.0); NEUT % 60.1 % (16.0-70.0); PLATELET COUNT 331 TH/MM3 (150-450); RED BLOOD COUNT 4.07 MIL/MM3 (4.50-5.90); RED CELL DISTRIBUTION WIDTH 13.2 % (11.6-17.2); WHITE BLOOD COUNT 6.8 TH/MM3 (4.0-11.0)
[2016-10-16 10:40] LABS: ANION GAP 8 MEQ/L (5-15); AST (GOT) 15 U/L (15-37); BICARBONATE 28.2 MEQ/L (21.0-32.0); BLOOD UREA NITROGEN 10 MG/DL (7-18); CHLORIDE 103 MEQ/L (98-107); GLOMERULAR FILTRATION RATE 150 ML/MIN (>89); POTASSIUM 4.3 MEQ/L (3.5-5.1); SODIUM (NA) 139 MEQ/L (136-145)
[2016-10-16 11:08] LABS: ALKALINE PHOSPHATASE 133 U/L (45-117); ALT (GPT) 18 U/L (12-78); HDL CHOLESTEROL 52.9 MG/DL (40.0-60.0); HEMOGLOBIN A1a 0.9 %; HEMOGLOBIN A1b 1.6 %; HEMOGLOBIN Ao 85.6 %; HEMOGLOBIN LA1C 1.9 %; HEMOGLOBIN P3 3.5 %; LDL CHOLESTEROL 120 MG/DL (0-99); TOTAL BILIRUBIN ADULT 0.4 MG/DL (0.2-1.0)
--- NOTE | 2016-10-16 11:13 | HHI.PR ---
Subjective Remarks Follow up on patient with chronic pain, loose right THR. Patient seen and examined today. Patient has no complaints at present. States he feels fine. Reports he has not been on any antibiotics for a long time. Denies any fever or chills. Denies any chest pain or SOB. Denies any N/V or abdominal pain. Objective Vitals Vital Signs Date Time Temp Pulse Resp B/P Pulse Ox O2 Delivery O2 Flow Rate FiO2 10/16/16 06:03 97.8 67 18 92/51 99 10/15/16 18:02 98.8 98 18 116/71 96 10/15/16 12:25 98.7 78 18 134/78 95 I/O 10/15/16 10/15/16 10/15/16 10/16/16 10/16/16 10/16/16 07:00 15:00 23:00 07:00 15:00 23:00 Intake Total 360 ml Balance 360 ml Intake Oral 360 ml Result Diagram: 10/16/1692910/16/16929 Objective Remarks GENERAL: This is a well-nourished, well-developed patient, in no apparent distress. Awake and alert. Lying in hospital bed. SKIN: No rashes. Warm and dry. HEAD: Atraumatic. Normocephalic. EYES: Extraocular motions intact. No scleral icterus. No injection or drainage. ENT: Nose without bleeding or purulent drainage. Airway patent. NECK: Trachea midline. CARDIOVASCULAR: Regular rate and rhythm without murmurs, gallops, or rubs. RESPIRATORY: Clear to auscultation. Breath sounds equal bilaterally. No wheezes , rales, or rhonchi. GASTROINTESTINAL: Abdomen soft, non-tender, nondistended. No hepato-splenomegaly , or palpable masses. No guarding. MUSCULOSKELETAL: Extremities without clubbing, cyanosis, or edema. No calf tenderness. NEUROLOGICAL: Awake and alert. Able to move all extremities. Motor and sensory function intact bilateral lower extremities. Normal speech. Medications and IVs Current Medications Medications (Trade) Dose Ordered Sig/Tiffany Route Start Time Stop Time Status Last Admin (Ativan) 1 mg Q6H PRN PO 10/15/16 11:00 10/15/16 17:21 (Ativan Inj) 1 mg Q6H PRN IM 10/15/16 11:00 (Tylenol) 650 mg Q4H PRN PO 10/15/16 11:00 (Milk Of Magnesia Liq) 30 ml DAILY PRN PO 10/15/16 11:00 (Mag-Al Plus Susp Liq) 30 ml Q6H PRN PO 10/15/16 11:00 (Desyrel) 50 mg HS PRN PO 10/15/16 21:00 10/15/16 21:07 (Augmentin) 500 mg TID PO 10/15/16 13:00 (Vibratab) 100 mg BID PO 10/15/16 21:00 (Lactinex) 1 tab TID PO 10/15/16 13:00 10/16/16 08:38 (Percocet 10-325 Mg) 1 tab Q4H PO 10/15/16 11:00 10/16/16 10:51 (Bactrim Ds 800-160 Mg) 1 tab BID PO 10/15/16 21:00 (Duragesic 75 Mcg Patch.72 Hr) 1 patch Q3D T-DERMAL 10/15/16 12:00 10/15/16 16:00 Miscellaneous Information 1 Q3D T-DERMAL 10/18/16 12:00 A/P Assessment and Plan 51-year-old male with past medical history significant for 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 Depression with suicidal ideation - Management per psychiatric team - discontinue antibiotics - patient states he was not taking these at home prior to admission Chronic neck low back and bilateral hip pain History of avascular necrosis s/p steroid use Status post bilateral hip replacements with loose right total hip prosthesis Status post neck and lumbar fusion surgeries - Continue patient on current pain medication regimen - Discussed possibility of spinal cord stimulator trial as outpatient - PT evaluation completed and recommendation for aquatic therapy as outpatient. Patient is agreeable. Will provide outpatient prescription for aquatic therapy at the time of this discharge. Hypertension - hypotensive reading. Patient asymptomatic. Repeat BP measurement improved. - Currently controlled off of medications - Monitor Diet-controlled diabetes - Diabetic diet - hemoglobin A1c 5.7 - No further intervention needed at this time Vitamin D deficiency - Begin supplementation - Follow up with PCP as outpatient for reevaluation DVT prophylaxis - Patient is ambulatory Patient is stable from medical standpoint. Will sign off. Please reconsult if needed. Discussed with Dr. Price, patient and nursing staff Marlen Olivas Oct 16, 2016 11:12
[2016-10-16 11:18] VITALS: BP 108/72; PULSE 81
--- NOTE | 2016-10-16 14:49 | EKG ---
Date Performed: 10/16/2016 Time Performed: 09:59:22 PTAGE: 51 years EKG: Sinus rhythm POSSIBLE RIGHT VENTRICULAR CONDUCTION DELAY BORDERLINE ECG PREVIOUS TRACING : 10/12/2015 21.30 Since previous tracing, no significant change noted DOCTOR: Kasandra Paige Interpretating Date/Time 10/16/2016 14:47:48
[2016-10-16] MEDS: LORazepam 1 MG TAB PO PRN (15:43)
[2016-10-16] MEDS: DULoxetine HCl DR 30 MG CAP PO SCH (16:06)
--- NOTE | 2016-10-16 19:36 | HHI.PYPN ---
Subjective Remarks Patient is a 51-year-old man with one adult son living with , unemployed on SSI, with past psychiatric history of depression, 1 previous psychiatric hospitalization, no previous suicide attempts or self- injurious behavior, no significant substance use, with a past medical history of previous hip surgeries, back and neck surgeries who presented to the emergency room. Patient seen for follow-up with counselor: Chart reviewed. Patient states that he had enough and tired of being in pain he states that his mind has been racing recently a random thoughts for the past year along with restlessness. He denies any irritability decreased be for sleep or any other manic symptoms at this time but does report endorse difficulty sleeping, decreased energy and concentration, increased appetite, feelings sad and depressed along with helplessness and hopelessness along with suicidal ideation with no plan or intent although patient has reports having had thought of a method via hanging. Patient denies any psychotic symptoms at this time or any delusions. Patient reports that his current stressors at this time is financial difficulty, chronic pain which affects his quality of life and not being him to work. Currently patient reports feeling depressed, denies any suicidal homicidal ideations or auditory or visual hallucinations or delusions at time of interview. Review of Systems Except as stated in HPI: all other systems reviewed are Neg Objective Alert: Yes [place]: Person, Place, Date, Situation Mood: Depressed Affect: Other (dysthymic and tearful at times) Memory Intact: Immediate, Recent, Remote Hallucinations: Other (denies) Delusions: No Delusion Type: Other Suicidal: Ideation (denies at this time) Homicidal: Ideation (denies) Insight/Judgment Limited insight, fair impulse control and judgment. Labs Test 10/16/16 09:30 White Blood Count 6.8 TH/MM3 Red Blood Count 4.07 MIL/MM3 Hemoglobin 14.0 GM/DL Hematocrit 40.1 % Mean Corpuscular Volume 98.6 FL Mean Corpuscular Hemoglobin 34.5 PG Mean Corpuscular Hemoglobin 34.9 % Concent Red Cell Distribution Width 13.2 % Platelet Count 331 TH/MM3 Mean Platelet Volume 7.5 FL Neutrophils (%) (Auto) 60.1 % Lymphocytes (%) (Auto) 30.0 % Monocytes (%) (Auto) 7.2 % Eosinophils (%) (Auto) 1.9 % Basophils (%) (Auto) 0.8 % Neutrophils # (Auto) 4.1 TH/MM3 Lymphocytes # (Auto) 2.0 TH/MM3 Monocytes # (Auto) 0.5 TH/MM3 Eosinophils # (Auto) 0.1 TH/MM3 Basophils # (Auto) 0.1 TH/MM3 CBC Comment DIFF FINAL Differential Comment Sodium Level 139 MEQ/L Potassium Level 4.3 MEQ/L Chloride Level 103 MEQ/L Carbon Dioxide Level 28.2 MEQ/L Anion Gap 8 MEQ/L Blood Urea Nitrogen 10 MG/DL Creatinine 0.57 MG/DL Estimat Glomerular Filtration 150 ML/MIN Rate Random Glucose 95 MG/DL Hemoglobin A1c 5.7 % Calcium Level 9.7 MG/DL Total Bilirubin 0.4 MG/DL Aspartate Amino Transf 15 U/L (AST/SGOT) Alanine Aminotransferase 18 U/L (ALT/SGPT) Alkaline Phosphatase 133 U/L Total Protein 7.6 GM/DL Albumin 3.5 GM/DL Triglycerides Level 120 MG/DL Cholesterol Level 197 MG/DL LDL Cholesterol 120 MG/DL HDL Cholesterol 52.9 MG/DL Cholesterol/HDL Ratio 3.72 RATIO Vitamin B12 Level 266 PG/ML 25-Hydroxy Vitamin D Total 17.4 ng/ML Thyroid Stimulating Hormone 1.610 uIU/ML 3rd Gen Vitals/IOs Vital Signs Date Time Temp Pulse Resp B/P Pulse Ox O2 Delivery O2 Flow Rate FiO2 10/16/16 11:18 81 108/72 10/16/16 06:03 97.8 18 99 10/15/16 03:00 Room Air Intake and Output 10/15/16 10/15/16 10/16/16 08:00 16:00 00:00 Intake Total 360 ml Balance 360 ml Assessment & Plan Problem List: (1) Recurrent major depression-severe ICD Code: F33.2 Assessment & Plan Estimated LOS: 5-7 days. Patient at this time continues to endorse significant depressive symptoms with no indication of manic or hypomanic episodes or psychotic symptoms. Patient endorses suicidal ideations secondary to current medical psychosocial stressors. Patient previously on a tricyclic antidepressant which she had used during his last admission but had only adhered to his treatment for a short time. Patient to start duloxetine 30 mg by mouth daily for depressive symptoms. Monitor for possible risk of serotonin syndrome as patient currently is on fentanyl patch. Monitor patient response to medications and possible adverse drug reactions. brief supportive psychotherapy provided. Patient encouraged to participate in group activities on the unit. Discharge planning and process Justification for Cont. Inpt. Patient risk for decompensation if a lower level of care Discharge Planning In progress Problem Qualifiers (1) Recurrent major depression-severe: Qualified Code: F33.2 - Severe episode of recurrent major depressive disorder, without psychotic features Sylvain Pinedo MD Oct 16, 2016 19:36
[2016-10-16] MEDS: traZODone HCL 50 MG TAB PO PRN (22:02)
[2016-10-17] MEDS: oxyCODONE/ACETAMINOPHEN 10 MG/325 MG TAB PO SCH ×6 (05:00→19:55)
[2016-10-17 05:31] VITALS: BP 116/73; PULSE 67; RESP 17; TEMP 98.1; O2SAT 97
[2016-10-17] MEDS: DULoxetine HCl DR 30 MG CAP PO SCH (08:12)
[2016-10-17] MEDS: CHOLECALCIFEROL (VIT D3) 1000 UNIT TAB PO SCH (08:12)
[2016-10-17] MEDS: LACTOBACILLUS ACIDOPHILUS TAB PO SCH ×3 (08:12→18:10)
[2016-10-17] MEDS: LORazepam 1 MG TAB PO PRN (12:07)
[2016-10-17] MEDS: NICOTINE 21 MG/24 HR PATCH T-DERMAL SCH (16:15)
[2016-10-17 17:58] VITALS: BP 100/62; PULSE 86; RESP 18; TEMP 98.3; O2SAT 94
--- NOTE | 2016-10-17 18:03 | HHI.PYPN ---
Subjective Remarks Patient is a 51-year-old man with one adult son living with , unemployed on SSI, with past psychiatric history of depression, 1 previous psychiatric hospitalization, no previous suicide attempts or self- injurious behavior, no significant substance use, with a past medical history of previous hip surgeries, back and neck surgeries who presented to the emergency room endorsing depressive symptoms and suicidal ideations. Patient seen for follow-up, chart reviewed. As per nursing report patient as called concerned that patient is currently taking duloxetine as he had had previous medication trials with his medicine and had side effects from it. Patient noted to be isolative but medication compliant continues to report feeling depressed. Patient seen in the day room and noted to be calm and cooperative in interview. Patient states that he continues to have episodes of anxiety which she feels like dieting that lasts minutes. He states that he has not and try to implement relaxation and breathing techniques with the onset of these episodes but is amenable to this recommendation. He states that he continually has these thoughts about but denies any suicidal ideations ( last being 2 days ago). Patient requests to be switched to a different antidepressant as he is concerned about having side effects as previously experienced on previous medication trial. Currently patient reports feeling okay denies suicidal ideation at this time denies homicidal ideation or perceptual disturbances, denies delusions. Review of Systems Except as stated in HPI: all other systems reviewed are Neg Objective Alert: Yes [place]: Person, Place, Date, Situation Mood: Depressed Affect: Other (dysthymic) Memory Intact: Immediate, Recent, Remote Hallucinations: Other (denies) Delusions: No Delusion Type: Other Suicidal: Ideation (denies at this time) Homicidal: Ideation (denies) Insight/Judgment Fair insight, impulse control and judgment Vitals/IOs Vital Signs Date Time Temp Pulse Resp B/P Pulse Ox O2 Delivery O2 Flow Rate FiO2 10/17/16 17:58 98.3 86 18 100/62 94 10/15/16 03:00 Room Air Assessment & Plan Problem List: (1) Recurrent major depression-severe ICD Code: F33.2 Assessment & Plan Estimated LOS: 5-7 days. Patient at this time continues to endorse depressive symptoms along with episodes anxiety. Duloxetine will be discontinued, start escitalopram 10 mg by mouth daily for depression and anxiety with upward titration as needed. Patient to continue to be monitored for possible signs of serotonin syndrome as patient is currently taking fentanyl. Monitor for medication response and possible adverse drug reactions. Supportive psychotherapy provided. Patient encouraged to not remain in his room and to participate in groups and activities. Discharge planning in process. Justification for Cont. Inpt. Patient at risk for further decompensation a lower level of care Discharge Planning In progress Problem Qualifiers (1) Recurrent major depression-severe: Qualified Code: F33.2 - Severe episode of recurrent major depressive disorder, without psychotic features Sylvain Pinedo MD Oct 17, 2016 18:02
[2016-10-17] MEDS: traZODone HCL 50 MG TAB PO PRN (22:14)
[2016-10-18] MEDS: oxyCODONE/ACETAMINOPHEN 10 MG/325 MG TAB PO SCH ×6 (05:15→23:02)
[2016-10-18 06:20] VITALS: BP 91/55; PULSE 76; RESP 16; TEMP 98.2; O2SAT 99
[2016-10-18] MEDS: CHOLECALCIFEROL (VIT D3) 1000 UNIT TAB PO SCH (08:12)
[2016-10-18] MEDS: NICOTINE 21 MG/24 HR PATCH T-DERMAL SCH (08:12)
[2016-10-18] MEDS: LACTOBACILLUS ACIDOPHILUS TAB PO SCH ×3 (08:12→17:15)
[2016-10-18] MEDS: REMOVE OLD PATCH T-DERMAL SCH (08:12)
[2016-10-18] MEDS: ESCITALOPRAM OXALATE 10 MG TAB PO SCH (08:12)
[2016-10-18] MEDS: fentaNYL 75 MCG/HR PATCH T-DERMAL SCH (11:57)
[2016-10-18] MEDS: REMOVE OLD DURAGESIC (FENTANYL) PATCH T-DERMAL SCH (11:57)
--- NOTE | 2016-10-18 16:18 | HHI.PYPN ---
Subjective Remarks Patient was seen and case discussed with nursing. Patient remains depressed with a blunted affect. Compliant with his medications and behaving well on the unit. Says he has fleeting suicidal ideation with no intent or plan. He has a visit from his . He is on high doses of opiates and has when necessary Ativan. One low blood pressure reading this morning Objective Alert: Yes [place]: Person, Place, Date, Situation Mood: Depressed Affect: Other (dysthymic) Memory Intact: Immediate, Recent, Remote Hallucinations: Other (denies) Delusions: No Delusion Type: Other Suicidal: Intent (denies), Plan (denies), Ideation (fleeting) Homicidal: Ideation (denies) Insight/Judgment Fair Vitals/IOs Vital Signs Date Time Temp Pulse Resp B/P Pulse Ox O2 Delivery O2 Flow Rate FiO2 10/18/16 06:20 98.2 76 16 91/55 99 10/15/16 03:00 Room Air Assessment & Plan Problem List: (1) Recurrent major depression-severe ICD Code: F33.2 Assessment & Plan DC when necessary Ativan given high-dose opiates. Repeat blood pressure Justification for Cont. Inpt. Patient would decompensate in a less restrictive setting Problem Qualifiers (1) Recurrent major depression-severe: Qualified Code: F33.2 - Severe episode of recurrent major depressive disorder, without psychotic features Angel Cadet DO Oct 18, 2016 16:18
[2016-10-18 17:00] VITALS: BP 123/71; PULSE 73; RESP 18; TEMP 97.5; O2SAT 99
[2016-10-18] MEDS: traZODone HCL 50 MG TAB PO PRN (21:17)
[2016-10-19] MEDS: oxyCODONE/ACETAMINOPHEN 10 MG/325 MG TAB PO SCH ×6 (03:00→23:26)
[2016-10-19 05:46] VITALS: BP 102/65; PULSE 73; RESP 16; TEMP 98.1; O2SAT 96
[2016-10-19] MEDS: REMOVE OLD PATCH T-DERMAL SCH (09:00)
[2016-10-19] MEDS: NICOTINE 21 MG/24 HR PATCH T-DERMAL SCH (09:00)
[2016-10-19] MEDS: ESCITALOPRAM OXALATE 10 MG TAB PO SCH (09:11)
[2016-10-19] MEDS: CHOLECALCIFEROL (VIT D3) 1000 UNIT TAB PO SCH (09:11)
[2016-10-19] MEDS: LACTOBACILLUS ACIDOPHILUS TAB PO SCH ×3 (09:12→18:36)
--- NOTE | 2016-10-19 12:16 | HHI.PYPN ---
Subjective Remarks Patient was seen and case discussed with nursing. Patient is regularly asking for opiates and we discussed why is when necessary Ativan was stopped yesterday. Complaining of "panic attacks" that are not reported by nursing. Says he is feeling anxious. Affect is withdrawn. Denies suicidal ideation intent or plan Objective Alert: Yes [place]: Person, Place, Date, Situation Mood: Depressed Affect: Blunted, Other (dysthymic) Memory Intact: Immediate, Recent, Remote Hallucinations: Other (denies) Delusions: No Delusion Type: Other Suicidal: Intent (denies), Plan (denies), Ideation (fleeting) Homicidal: Ideation (denies) Insight/Judgment Poor Vitals/IOs Vital Signs Date Time Temp Pulse Resp B/P Pulse Ox O2 Delivery O2 Flow Rate FiO2 10/19/16 05:46 98.1 73 16 102/65 96 Assessment & Plan Problem List: (1) Recurrent major depression-severe ICD Code: F33.2 Assessment & Plan Add when necessary Atarax 25 mg every 6 hours anxiety Justification for Cont. Inpt. Patient would decompensate in a less restrictive setting Problem Qualifiers (1) Recurrent major depression-severe: Qualified Code: F33.2 - Severe episode of recurrent major depressive disorder, without psychotic features Angel Cadet DO Oct 19, 2016 12:16
[2016-10-19] MEDS: hydrOXYzine HCL 25 MG TAB PO PRN (15:01)
[2016-10-19 16:55] VITALS: BP 120/64; PULSE 77; RESP 18; TEMP 97.8; O2SAT 97
[2016-10-19] MEDS: traZODone HCL 50 MG TAB PO PRN (23:27)
[2016-10-20] MEDS: oxyCODONE/ACETAMINOPHEN 10 MG/325 MG TAB PO SCH ×6 (03:00→23:00)
[2016-10-20 05:29] VITALS: BP 98/59; PULSE 62; RESP 16; TEMP 98.2; O2SAT 94
[2016-10-20] MEDS: ESCITALOPRAM OXALATE 10 MG TAB PO SCH (08:21)
[2016-10-20] MEDS: REMOVE OLD PATCH T-DERMAL SCH (08:21)
[2016-10-20] MEDS: CHOLECALCIFEROL (VIT D3) 1000 UNIT TAB PO SCH (08:21)
[2016-10-20] MEDS: LACTOBACILLUS ACIDOPHILUS TAB PO SCH ×3 (08:21→17:02)
[2016-10-20] MEDS: NICOTINE 21 MG/24 HR PATCH T-DERMAL SCH (08:21)
[2016-10-20 15:36] VITALS: BP 122/68; PULSE 67; RESP 18; TEMP 98.2; O2SAT 97
--- NOTE | 2016-10-20 16:23 | HHI.PYPN ---
Subjective Remarks Patient seen in his room with nurse David and medical student Tracee Gr and Bharti. Patient did remember me from prior contact a year or 2 ago. He denies suicidality at the present time though he appears sad and in some pain. He is compliant with medications. For now continue treatment Review of Systems Except as stated in HPI: all other systems reviewed are Neg Objective Alert: Yes [place]: Person, Place, Date, Situation Mood: Depressed Affect: Blunted, Other (dysthymic) Memory Intact: Immediate, Recent, Remote Hallucinations: Other (denies) Delusions: No Delusion Type: Other Suicidal: Intent (denies), Plan (denies), Ideation (fleeting) Homicidal: Ideation (denies) Insight/Judgment Poor Vitals/IOs Vital Signs Date Time Temp Pulse Resp B/P Pulse Ox O2 Delivery O2 Flow Rate FiO2 10/20/16 15:36 98.2 67 18 122/68 97 Assessment & Plan Problem List: (1) Recurrent major depression-severe ICD Code: F33.2 Assessment & Plan Estimated LOS: days patient continues depressed though denying suicidality to me at this time Justification for Cont. Inpt. At this time patient may decompensate in place to the lower level of care Discharge Planning To be determined Problem Qualifiers (1) Recurrent major depression-severe: Qualified Code: F33.2 - Severe episode of recurrent major depressive disorder, without psychotic features Edilson Sesay MD Oct 20, 2016 16:23
[2016-10-20] MEDS: traZODone HCL 50 MG TAB PO PRN (20:48)
[2016-10-21] MEDS: oxyCODONE/ACETAMINOPHEN 10 MG/325 MG TAB PO SCH ×6 (02:55→21:07)
[2016-10-21 06:29] VITALS: BP 117/59; PULSE 70; RESP 16; TEMP 97.9; O2SAT 96
[2016-10-21] MEDS: LACTOBACILLUS ACIDOPHILUS TAB PO SCH ×3 (09:00→18:00)
[2016-10-21] MEDS: NICOTINE 21 MG/24 HR PATCH T-DERMAL SCH (09:00)
[2016-10-21] MEDS: REMOVE OLD PATCH T-DERMAL SCH (09:00)
[2016-10-21] MEDS: ESCITALOPRAM OXALATE 10 MG TAB PO SCH (09:11)
[2016-10-21] MEDS: CHOLECALCIFEROL (VIT D3) 1000 UNIT TAB PO SCH (09:11)
[2016-10-21] MEDS: hydrOXYzine HCL 25 MG TAB PO PRN (10:30)
[2016-10-21] MEDS: REMOVE OLD DURAGESIC (FENTANYL) PATCH T-DERMAL SCH (12:00)
[2016-10-21] MEDS: fentaNYL 75 MCG/HR PATCH T-DERMAL SCH (12:05)
[2016-10-21 15:36] VITALS: BP 127/73; PULSE 75; RESP 18; TEMP 97.2; O2SAT 98
--- NOTE | 2016-10-21 16:28 | HHI.PYPN ---
Subjective Remarks Patient seen for follow-up, chart reviewed. As per nursing report patient has been pleasant with no behavioral issues. Patient found in the common area was able to engage in interview with aligner typewriter for follow-up. Patient states that over the weekend he had been feeling "okay" and that his mood lately has been good. He reports feeling better, denies any suicidal ideations, last time being a couple of days ago. Patient reports that his had visited and daily which he was happy about and plans on seeing her later today. Patient reports tolerating current treatment well, denies any adverse drug reactions. Patient states that he is feeling well enough and would like to perhaps be discharged later this week. Patient plans on continuing with his pain management physician as an outpatient as well as defined and orthopedic physician in [place] for his hip. Patient at this time denies any depressive manic or psychotic symptoms. Denies SI, HI, AVH or delusions at this time. Review of Systems Except as stated in HPI: all other systems reviewed are Neg Objective Alert: Yes [place]: Person, Place, Date, Situation Mood: Calm Affect: Appropriate Memory Intact: Immediate, Recent, Remote Hallucinations: Other (denies) Delusions: No Delusion Type: Other Suicidal: Ideation (denies) Homicidal: Ideation (denies) Insight/Judgment Fair insight, impulse control and judgment Vitals/IOs Vital Signs Date Time Temp Pulse Resp B/P Pulse Ox O2 Delivery O2 Flow Rate FiO2 10/21/16 15:36 97.2 75 18 127/73 98 Assessment & Plan Problem List: (1) Recurrent major depression-severe ICD Code: F33.2 Assessment & Plan Estimated LOS: 3-5 days. Patient at this time denies any persistent depressive symptoms, denies any suicidal ideations for the past couple of days. Patient reports tolerating current treatment well. Continue current treatment. Patient agrees to continue outpatient follow-up for continuity of care once discharged. Collateral pending from . Brief supportive psychotherapy provided. Discharge planning in progress. Justification for Cont. Inpt. Patient risk for decompensation if a lower level of care Discharge Planning In progress Problem Qualifiers (1) Recurrent major depression-severe: Qualified Code: F33.2 - Severe episode of recurrent major depressive disorder, without psychotic features Sylvain Pinedo MD Oct 21, 2016 16:28
[2016-10-21] MEDS: traZODone HCL 50 MG TAB PO PRN (21:14)
[2016-10-22] MEDS: oxyCODONE/ACETAMINOPHEN 10 MG/325 MG TAB PO SCH ×4 (01:00→13:10)
[2016-10-22 06:31] VITALS: BP 99/55; PULSE 62; RESP 16; TEMP 97.8; O2SAT 97
[2016-10-22] MEDS: LACTOBACILLUS ACIDOPHILUS TAB PO SCH ×2 (08:18→13:10)
[2016-10-22] MEDS: CHOLECALCIFEROL (VIT D3) 1000 UNIT TAB PO SCH (08:18)
[2016-10-22] MEDS: ESCITALOPRAM OXALATE 10 MG TAB PO SCH (08:18)
[2016-10-22] MEDS: REMOVE OLD PATCH T-DERMAL SCH (09:00)
[2016-10-22] MEDS: NICOTINE 21 MG/24 HR PATCH T-DERMAL SCH (09:00)
[2016-10-22] MEDS ORDERED: LACT PO (12:57)
[2016-10-22] MEDS ORDERED: VITA1000 PO (12:57)
[2016-10-22] MEDS ORDERED: FENT75T T-DERMAL (12:57)
[2016-10-22] MEDS ORDERED: OXYC1TAB36 PO (12:57)
[2016-10-22] MEDS ORDERED: ESCI10TA PO (12:57)
--- NOTE | 2016-10-22 20:12 | HHI.DS ---
Psychiatry Discharge Summary Inpatient Psychiatric care?: Yes Advance Directive: No Reason Not Provided: refused Mental Health AdvanceDirective: No Health Care Proxy: No Admission Admission Date Oct 15, 2016 at 09:37 Admission Diagnosis: (1) Recurrent major depression-severe ICD Code: F33.2 Brief History This is a 51-year-old gentleman, presenting voluntarily to the emergency department due to depression and suicidal ideation. The patient has been in chronic pain for years and is under pain management for hip, neck and back pain. He uses a fentanyl patch on a daily basis and approximately for 10 mg Percocet pills. Recently the pain has been getting worse, primarily in his right hip. He has been unable to have a orthopedic intervention, reportedly because of the risk involved. Patient describes multiple symptoms of depression, including depressed mood, anxiety, initial and middle insomnia, suicidal thinking, social withdrawal, diminished energy, anhedonia, etc. He has feelings of hopelessness and helplessness regarding his physical condition and his chronic pain. He has been taking antidepressants in the past but is not reportedly on antidepressant medicine now. He does have a plan to hurt himself by hanging. He denies any use of alcohol. Tobacco Use In Past 30 Days: 5 or More Cigarettes/Day Alcohol Use: Never Hospital Course Patient is a 51-year-old man with one adult son living with , unemployed on SSI, with past psychiatric history of depression, 1 previous psychiatric hospitalization, no previous suicide attempts or self- injurious behavior, no significant substance use, with a past medical history of previous hip surgeries, back and neck surgeries who presented to the emergency room. Patient initially reported several depressive symptoms including decreased sleep , energy, concentration, increased appetite, feeling depressed, helpless and hopeless along with suicidal ideation in the context of chronic pain secondary to multiple musculoskeletal injuries which have impacted his function and quality of life. Patient was started on duloxetine 30 mg by mouth daily for depressive symptoms as well as to try to address some neuropathic pain. Patient tolerated medication well but was concerned of having recalled experiencing side effects in the past when on this medication. Patient was switched over to citalopram 10 mg by mouth daily for depression and anxiety the patient started to improve, reported less depressive symptoms, no longer smokes endorsing feeling helpless or hopeless nor suicidal ideations. Patient began to feel hopeful, future oriented, and motivated to continue to address his chronic medical issues as well to continue outpatient follow-up for depression. Patient states that he has very supportive which is his motivation to continue forward. On day of discharge patient reports his mood being great before to go home and fixing his hip. Patient reports tolerating medication well and plans on continuing treatment as well as outpatient follow-up for continuity of care. Patient agrees with plan. Patient advised to call 911 or return to ER in case of emergency. Results Blood Pressure 99 / 55 Vital Signs Date Time Temp Pulse Resp B/P Pulse Ox O2 Delivery O2 Flow Rate FiO2 10/22/16 06:31 97.8 62 16 99/55 97 CBC and basic metabolic panel within normal limits, lipid profile was noted slightly increased LDL. Summary of Procedures None Pending results at discharge: No Medications # of Antipsychotic meds at D/C: 0 Approp Antipsych med options 1 - Minimum of three failed multiple trials of monotherapy. 2 - Documented plan to taper to monotherapy due to previous use of multiple meds OR cross-taper in progress at D/C. 3 - Documentation of augmentation of Clozapine. 4 - Justification other than those listed in allowable values 1-3, document here : Discharge Discharge Date: Oct 22, 2016 Discharge Diagnosis: (1) Recurrent major depression-severe Diagnosis: Principal ICD Code: F33.2 Mental Status Exam at Disch Patient appears stated age, in casual clothing blocking assistance with walker, fair hygiene and grooming, calm and cooperative with interview. Fair eye contact. Speech with normal rate tone and prosody. Mood "great", affect euthymic, thought process linear, future oriented, thought content denies SI, HI , AVH or delusions. Fair insight, poor control and judgment. Alert and oriented 3 Pt Condition on Discharge: Stable Discharge Disposition: Discharge Home Discharge Instructions Diet Instructions: Heart Healthy Diet Activities you can perform: Weight Bearing as Francis Scheduled Appointment: [facility] Behavioral Discharge Time > 30 minutes Discharge/Advance Care Plan Health Problems: (1) Recurrent major depression-severe Goals to promote your health * To prevent worsening of your condition and complications * To maintain your health at the optimal level Directions to meet your goals Take your medications as prescribed Follow your dietary instruction Follow activity as directed Keep your appointments as scheduled Take your immunizations and boosters as scheduled If your symptoms worsen call your PCP, if no PCP go to Urgent Care Center or Emergency Room For 06/10 questions related to your inpatient stay or results of tests pending at discharge, please contact Dr. Sylvain Pinedo at Smoking is Dangerous to Your Health. Avoid second hand smoking Problem Qualifiers (1) Recurrent major depression-severe: Qualified Code: F33.2 - Severe episode of recurrent major depressive disorder, without psychotic features Sylvain Pinedo MD Oct 22, 2016 20:12
== END 2016-10-22 14:10 | disposition home or self-care (01) | DRG 885 ==
LOC: NEPD 19:59 → NEDA 10-15 09:37 → H260 10-15 12:25
PROVIDERS: ADMIT Student in an Organized Health Care Education/Training Program; ATTEND Student in an Organized Health Care Education/Training Program
DX: F33.2 Major depressive disorder, recurrent severe without psychotic features (principal); R45.851 Suicidal ideations; T84.030A Mechanical loosening of internal right hip prosthetic joint, initial encounter; E11.9 Type 2 diabetes mellitus without complications; G89.29 Other chronic pain; M54.2 Cervicalgia; M25.551 Pain in right hip; M19.90 Unspecified osteoarthritis, unspecified site; F41.9 Anxiety disorder, unspecified; J45.909 Unspecified asthma, uncomplicated; I10 Essential (primary) hypertension; M54.5 Low back pain; Z96.643 Presence of artificial hip joint, bilateral; E78.5 Hyperlipidemia, unspecified; F17.210 Nicotine dependence, cigarettes, uncomplicated; Y83.8 Other surgical procedures as the cause of abnormal reaction of the patient, or of later complication, without mention of misadventure at the time of the procedure; E55.9 Vitamin D deficiency, unspecified; F41.0 Panic disorder [episodic paroxysmal anxiety]
CPT/HCPCS: 80053; 80061; 80307; 82306; 82607; 83036; 84443; 85025; 93005; 96374; 96375; G8987-GP; G8988-GP; J1170; J1885; J2405